=== PATIENT | female | born 1975 | race Two or more races ===

== ENCOUNTER → 2020-10-13 | Outpatient (CLI) | payer OTHER ==
--- NOTE | 2020-10-13 17:25 | MR ---
EXAMINATION TYPE: MR foot RT wo con DATE OF EXAM: 10/13/2020 COMPARISON: None HISTORY: Swelling from stress fracture of right foot years ago, 2nd metatarsal. Multiplanar multiecho imaging of the right foot was performed without contrast. There is small ankle joint effusion. Achilles tendon is intact. Medial and lateral flexor tendons of the foot appear intact. Ankle mortise is anatomic. There is mild edema in the medial base of the firs t metatarsal. I see no fracture line. The toes appear intact. There is mild subcutaneous edema involv ing the forefoot at the second and third and fourth MP joints. I see no evidence of a second metatars al fracture. There is mild spurring and small degenerative cyst at the first MP joint. There is some skin thickening and increased fat deposition on the dorsal aspect of the forefoot at the first and se cond metatarsals. 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 Mild subcutaneous edema at the base of the toes. Small ankle joint effusion. No fracture seen. Edema in the medial first metatarsal base consistent with a bone bruise. No evidence of a second metatarsal fracture.
== END | disposition home or self-care (01) ==
LOC: RADMRIMAIN 09:24
PROVIDERS: ATTEND Podiatrist Foot & Ankle Surgery
DX: M19.071 Primary osteoarthritis, right ankle and foot (principal)